=== PATIENT | female | born 1945 | race Caucasian/White ===

== ENCOUNTER 2016-09-11 18:09 | Inpatient (IN) | payer OTHER ==
[~2016-09-11] VITALS: Ht 171.4 cm; Wt 65.1 kg
[~2016-09-11 18:09] MED LIST: ALBUTEROL2.5 MG/3 M IN; ALENDRONATE SOD70 MG PO; ASPIRIN ADULT L81 M1 PO; ATROVENT0.03 %; CARDIZEM C1 PO; CENTRUM1 TAB PO; CITALOPRAM HYDR40 MG PO; COUMADIN2.5 MG PO; DIFLUCAN200 MG PO; DIPHENHYDRAMINE25 M1 PO; FLOVENT HFA110 MCG IN; FUROSEMIDE20 MG PO; IPRATROPIUM BROMIDE/; IPRATROPIUM BROMIDE/ IN; LEVAQUIN750 MG PO; LOPRESSOR25 MG PO; MEGESTROL ACETATE PO; MONTELUKAST SOD10 MG PO; MUCINEX600 MG PO; NORCO1 TA1 PO; O2; O2 IN; PERCOCET1 TA1 PO; PREDNISONE10 MG PO; PREDNISONE20 MG PO; PROAIR HFA IN; REMERON15 MG PO; TYLENOL325 MG PO; VITAMIN D-31000 UNIT PO; XANAX0.5 MG PO; XARELTO10 MG PO; [UNRECOGNIZED DRUG - OTHER] PO
[2016-09-11 18:43] VITALS: BP 103/70
--- NOTE | 2016-09-11 21:28 | DIAGNOSTIC IMAGING REPORT ---
PROCEDURE: XR CHEST 2 VIEW INDICATION: COPD EXACERBATION TECHNIQUE: PA and lateral views. COMPARISON: Compared to CTA thorax (08/03/2016) and chest x-ray (07/24/2016). FINDINGS: Pulmonary hyperexpansion and chronic obstructive pulmonary disease. There is chronic volume loss in the right upper lung with chronic elevation of the right pulmonary artery are clear. Heart and mediastinum are normal. Thorax is unchanged within normal limits. IMPRESSION: 1. Chronic obstructive pulmonary disease. 2. Otherwise negative chest. No evidence of acute process.
[2016-09-11 22:35] VITALS: BP 121/78
[2016-09-12 02:25] VITALS: BP 145/76
--- NOTE | 2016-09-12 06:06 | Progress Note ---
Subjective General Patient states that she is doing around the same. Forgot that she had been getting the breathing treatments showing some confusion. Has SOB around the same. No chest pain, no bleeding. Physical Exam Vital Signs / I&Os Vital Signs Date Time Temp Pulse Resp B/P Pulse O2 O2 Flow FiO2 Ox Delivery Rate 09/12 0309 3.0 09/12 0225 98.6 86 20 145/76 91 Nasal 3.0 Cannula 09/12 0211 2.0 09/115 98.8 103 20 121/78 99 Nasal 4.0 Cannula 09/11 1843 98.4 98 20 103/70 100 Nasal 5.0 Cannula I&O 09/12 0000 09/11 1600 09/11 0800 Intake Total 240 Output Total Balance 240 General Appearance weak appearing female Lungs coarse BS with wheezes, some rhonchi Cardiovascular Regular rate and rhythm Abdomen Soft, No tenderness Extremities No edema LAB Results Laboratory Tests 09/11 2209 Chemistry Plasma Sodium (136 - 145 mmol/L) 142 Plasma Potassium (3.5 - 5.1 mmol/L) 4.1 Plasma Chloride (98 - 107 mmol/L) 106 CO2 (Enzymatic) (21 - 32 mmol/L) 29 BUN (7 - 18 mg/dL) 23 Creatinine (0.6 - 1.3 mg/dL) 1.2 Est GFR ( Amer) (mL/min) 56.89 Est GFR (Non-Af Amer) (mL/min) 46.94 Glucose (70 - 110 mg/dL) 137 Plasma Calcium (8.5 - 10.1 mg/dL) 8.9 Total Bilirubin (0.0 - 1.0 mg/dL) 0.3 AST (15 - 37 U/L) 16 ALT (12 - 78 U/L) 16 Alkaline Phosphatase (46 - 116 U/L) 66 Total Protein (6.4 - 8.2 g/dL) 6.8 Albumin (3.3 - 5.0 g/dL) 3.1 Coagulation INR (0.8 - 1.2) 1.6 Hematology WBC (4.5 - 11.5 K/uL) 3.4 RBC (4.00 - 5.20 M/uL) 3.80 Hgb (12.0 - 16.0 gm/dL) 9.3 Hct (36.0 - 46.0 %) 29.5 MCV (80 - 100 fL) 78 MCH (26 - 34 pg) 25 RDW (11.6 - 14.8 %) 20.6 Neut % (Auto) (50 - 75 %) 68.6 Lymph % (Auto) (25 - 40 %) 21.2 [place] % (Auto) (3 - 14 %) 7.8 Eos % (Auto) (0 - 4 %) 2.1 Baso % (Auto) (0 - 2 %) 0.3 Plt Count, EDTA (150 - 400 K/uL) 180 PUBS MCHC (31 - 37 g/dL) 32 Microbiology Date/Time Procedure - Status Source Growth 09/11 1900 Influenza Screen - COMP NASALPHAR Assessment and Plan Problem List 1. COPD exacerbation Plan Will continue with breathing treatments, steroids, abx and see how she does. 2. Hypoxia Plan On O2 stable 3. Weak Plan Continues to be weak may need to have eval with PT 4. Bronchogenic cancer Plan stable
[2016-09-12] MEDS ORDERED: RANITIDINE HCL150 MG PO (06:16)
[2016-09-12] MEDS ORDERED: PRILOSEC40 MG PO (06:17)
[2016-09-12] MEDS ORDERED: SINGULAIR10 MG PO (06:18)
[2016-09-12] MEDS ORDERED: FLUTICASONE PR50 MCG (06:20)
[2016-09-12] MEDS ORDERED: VENLAFAXINE H37.5 M1 PO (06:23)
[2016-09-12] MEDS ORDERED: IPRATROPIUM BROMIDE/ IN (06:27)
[2016-09-12 07:16] VITALS: BP 113/63
[2016-09-12 10:47] VITALS: BP 105/66
[2016-09-12 14:40] VITALS: BP 104/69
[2016-09-12 18:30] VITALS: BP 109/70
[2016-09-12 21:57] VITALS: BP 128/81
[2016-09-13 02:38] VITALS: BP 133/76
--- NOTE | 2016-09-13 06:36 | Progress Note ---
Subjective General 71 yo female with lung CA hx who presented with copd exacerbation. Is nearly back to her baseline but still wheezy. Baseline isn't great around 5/ 10 per patient. No fevers, sob pos. Physical Exam Vital Signs / I&Os Vital Signs Date Time Temp Pulse Resp B/P Pulse O2 O2 Flow FiO2 Ox Delivery Rate 09/13 0238 98.8 85 18 133/76 96 Nasal 3.0 Cannula 09/12 2157 98.1 95 18 128/81 94 Nasal 3.0 Cannula 09/12 2140 Nasal 3.0 Cannula 09/12 1901 3.0 09/12 1830 98.1 100 16 109/70 95 Nasal 3.0 Cannula 09/12 1646 3.0 09/12 1440 98.2 88 16 104/69 93 Nasal 3.0 Cannula 09/12 1152 3.0 09/12 1047 98.8 90 20 105/66 98 Nasal 3.0 Cannula 09/12 0954 Nasal 3.0 Cannula 09/12 0716 98.8 88 20 113/63 94 Nasal 3.0 Cannula I&O 09/13 0000 09/12 1600 09/12 0800 Intake Total 350 480 450 Output Total 200 350 800 Balance 150 130 -350 General Appearance Alert, Cooperative HEENT glasses Lungs coarse BS with diffuse wheezes Cardiovascular Regular rate and rhythm Extremities No edema LAB Results Laboratory Tests 09/13 09/12 09/12 0531 1254 1030 Coagulation INR (0.8 - 1.2) 2.0 1.6 Cancelled Assessment and Plan Problem List 1. Bronchogenic cancer Plan stable 2. Weak Plan Continues wo be weak and wheezy 3. COPD exacerbation Plan One more day of steroids and treatment. Is improving. Will likely be ready for d /c soon tomorrow or next day
[2016-09-13 07:24] VITALS: BP 132/71
[2016-09-13 10:23] VITALS: BP 119/66
[2016-09-13 14:40] VITALS: BP 114/75
[2016-09-13 18:10] VITALS: BP 135/83
[2016-09-14] VITALS (7 sets, daily range): BP systolic 119–152; BP diastolic 55–91
--- NOTE | 2016-09-14 23:04 | Progress Note ---
Subjective General Breathing very mildly improved, but still with significant increased work of breathing. No nausea, vomitting, diarrhea, constipation. No abd pain. No chest pain. Physical Exam Vital Signs / I&Os Vital Signs Date Time Temp Pulse Resp B/P Pulse O2 O2 Flow FiO2 Ox Delivery Rate 09/14 2225 36.7 75 16 121/73 96 Nasal 2.0 Cannula 09/14 2142 2.0 09/14 1822 36.7 80 20 119/70 95 Nasal 4.0 Cannula 09/14 1820 88 20 92 Nasal 5.0 Cannula 09/14 1559 90 20 91 Nasal 4.0 Cannula 09/14 1529 4.0 09/14 1459 36.6 92 20 127/55 95 Nasal 4.0 Cannula 09/14 1029 36.9 78 22 134/73 99 Nasal 4.0 Cannula 09/14 0830 Nasal Cannula 09/14 0819 4.0 09/14 0709 36.7 89 22 151/83 91 Nasal 3.0 Cannula 09/14 0447 36.9 86 20 142/86 95 Nasal 4.0 Cannula 09/14 0126 37.1 80 18 152/91 96 Nasal 4.0 Cannula I&O 09/14 0000 09/13 1600 09/13 0800 Intake Total 1255 660 150 Output Total 1050 450 Balance 205 210 150 General Appearance Alert, Cooperative, Mild distress Lungs Course diffusely. Increased work of breathing. Cardiovascular Regular rate and rhythm, Normal S1 and S2, 2/6 systolic murmur increased at the base. Abdomen Normal bowel sounds, Soft, No tenderness Extremities No edema Assessment and Plan Problem List 1. COPD exacerbation Plan Slowly improving. Will consider discharge to SNF or home tomorrow if improved. 2. Hypoxia Plan mildly improved. 3. Lung cancer Plan Stable.
[2016-09-15 02:22] VITALS: BP 135/73
[2016-09-15 06:53] VITALS: BP 140/78
[2016-09-15 10:52] VITALS: BP 117/55
[2016-09-15 14:28] VITALS: BP 106/64
[2016-09-15 19:13] VITALS: BP 122/58
[2016-09-15 22:59] VITALS: BP 131/67
[2016-09-15] MEDS ORDERED: PREDNISONE20 MG PO (23:58)
--- NOTE | 2016-09-15 23:59 | Provider's Discharge Care Plan ---
Problem, Goal, Plan Problem List 1. COPD exacerbation Goals: Improved health/wellness Instructions: Follow up as directed, Take meds as directed 2. DVT (deep venous thrombosis) Goals: Improved health/wellness Instructions: Follow up as directed, Take meds as directed
--- NOTE | 2016-09-16 00:04 | Progress Note ---
Subjective General Breathing mildly improved. No nausea, vomitting, diarrhea, constipation. No abdominal pain. No chest pain. Physical Exam Vital Signs / I&Os Vital Signs Date Time Temp Pulse Resp B/P Pulse O2 O2 Flow FiO2 Ox Delivery Rate 09/15 2259 36.7 70 22 131/67 100 Nasal 4.0 Cannula 09/15 1913 36.9 82 22 122/58 100 Nasal 4.0 Cannula 09/15 1515 4.0 09/15 1505 89 Nasal 4.0 Cannula 09/15 1428 37.1 85 22 106/64 96 Nasal 4.0 Cannula 09/15 1116 4.0 09/15 1052 36.7 99 22 117/55 93 Nasal 4.0 Cannula 09/15 0842 4.0 09/15 0657 5.0 09/15 0653 36.9 89 22 140/78 92 Nasal 5.0 Cannula 09/15 0222 36.9 73 16 135/73 98 Nasal 2.0 Cannula 09/15 0100 2.0 I&O 09/16 0000 09/15 1600 09/15 0800 Intake Total 560 50 Output Total 600 600 Balance -40 -550 General Appearance Alert, Cooperative, Mild distress Lungs Course diffusely with diffuse moderate to severe wheezing with OK air movement. Mildy improved from yesterday. Cardiovascular Regular rate and rhythm, Normal S1 and S2, No murmurs, gallops, rubs Abdomen Normal bowel sounds, Soft, No tenderness Extremities No edema Assessment and Plan Problem List 1. COPD exacerbation Plan Improving on duonebs, steroids, and rocephin. If improved tomorrow, will consider dishcarge to home. 2. Hypoxia Plan Stable. 3. Lung cancer Plan Stable. 4. DVT (deep venous thrombosis) Plan Supratherapeutic on coumadin. Held today. Recheck in am. 5. Paroxysmal atrial fibrillation Plan Rate controlled on medications.
[2016-09-16 02:50] VITALS: BP 139/80
[2016-09-16 07:08] VITALS: BP 147/78
[2016-09-16] MEDS ORDERED: PREDNISONE20 MG PO (07:47)
[2016-09-16 10:52] VITALS: BP 120/64
[2016-09-16 14:30] VITALS: BP 95/61
[2016-09-16 18:38] VITALS: BP 127/66
[2016-09-16 23:21] VITALS: BP 123/78
[2016-09-17 02:57] VITALS: BP 127/82
[2016-09-17 06:27] VITALS: BP 156/94
[2016-09-17 10:39] VITALS: BP 138/74
[2016-09-17 14:41] VITALS: BP 113/65
[2016-09-17 19:13] VITALS: BP 120/70
[2016-09-17 23:14] VITALS: BP 130/67
[2016-09-18 03:33] VITALS: BP 141/81
[2016-09-18 06:25] VITALS: BP 142/69
[2016-09-18 10:48] VITALS: BP 117/59
--- NOTE | 2016-09-22 09:41 | DISCHARGE SUMMARY ---
ADMIT DATE: 09/11/2016 DISCHARGE DATE: 09/18/2016 ADMISSION DIAGNOSES: 1. Chronic obstructive pulmonary disease exacerbation 2. Hypoxia 3. Lung cancer 4. Recent deep venous thrombosis 5. Paroxysmal atrial fibrillation DISCHARGE DIAGNOSES: 1. Chronic obstructive pulmonary disease exacerbation 2. Hypoxia 3. Lung cancer 4. Recent deep venous thrombosis 5. Paroxysmal atrial fibrillation BRIEF HISTORY: This is a 71-year-old female with a history of lung cancer and COPD, presenting to my clinic with complaints of increasing shortness of breath and cough. The patient had mild symptoms. The day before presentation; however, was significantly worse when she presented to the clinic. She is also complaining of increased sputum production; however, denies any fevers, but does have chills. HOSPITAL COURSE: The patient was admitted to the hospital and treated for her COPD exacerbation with IV antibiotics, steroids, and DuoNebs. She very slowly improved and waxed and waned towards the end of her hospitalization. I had recommended that the patient go to rehabilitation as she was fairly unstable on her feet; however, her insurance declined that. She did eventually discharge to [facility] for a couple of days for increased assistance as she is recovering from this illness. PHYSICAL EXAMINATION: VITAL SIGNS: At the time of discharge, vital signs were stable. GENERAL: This is in elderly patient, sitting in a chair, in no apparent distress. HEENT: Head is atraumatic, normocephalic. Trachea is midline. There is no JVD. HEART: S1, S2, irregularly irregular rhythm. No S3, S4, gallops, or rubs. There is a 2/6 systolic murmur increased at the base. LUNGS: Mildly worse again today, but overall improved from admission with coarse lung sounds diffusely. ABDOMEN: Soft, nontender, nondistended without hepatosplenomegaly or masses. Bowel sounds are active. There is no peripheral edema. DISCHARGE INSTRUCTIONS/MEDICATIONS: The patient was discharged to [facility] for further recovery. Diet: Cardiac diet. Activity: Up with assist. Consult home health care for physical therapy. Medications: Prednisone 40 mg p.o. daily x3 days, then 20 mg p.o. daily x3 days, then 10 mg p.o. daily x4 days. Alendronate 70 mg p.o. weekly. Mirtazapine 30 mg p.o. at bedtime. Tylenol 650 mg p.o. q.4 hours p.r.n. severe pain. Vitamin D 2000 international units p.o. daily. Multivitamin 1 tab p.o. daily. Fluticasone 110 mcg 1 puff inhaled b.i.d. Diphenhydramine 25 mg p.o. daily p.r.n. allergies and insomnia. Albuterol inhaler HFA 2 puffs inhaled q.4 hours p.r.n. wheezing. Coumadin 6 mg Wednesday, Wednesday, Wednesday, Wednesday, Wednesday, and 5 mg on Tuesdays and . Cardizem 180 mg p.o. daily. Metoprolol tartrate 25 mg p.o. b.i.d. Furosemide 20 mg p.o. daily. Mucinex 600 mg p.o. b.i.d. Montelukast 10 mg p.o. at bedtime. Xanax 0.5 mg p.o. t.i.d. p.r.n. anxiety. Percocet 5/325 mg p.o. b.i.d. p.r.n. severe pain. Ranitidine 150 mg p.o. b.i.d. Prilosec 40 mg p.o. b.i.d. Fluticasone 2 sprays each nostril inhaled daily. Venlafaxine 37.5 mg p.o. daily. DuoNeb 1 neb inhaled q.i.d. Follow up, the patient was instructed to have a PT/INR on Wednesday of this week.
== END 2016-09-18 15:00 | disposition home or self-care (01) | DRG 191 ==
LOC: ACUTE2 SRH 18:09
PROVIDERS: ADMIT Family Medicine
DX: J44.1 Chronic obstructive pulmonary disease with (acute) exacerbation (principal); R09.02 Hypoxemia; C34.11 Malignant neoplasm of upper lobe, right bronchus or lung; I50.32 Chronic diastolic (congestive) heart failure; I48.0 Paroxysmal atrial fibrillation; Z79.01 Long term (current) use of anticoagulants
CPT/HCPCS: 90074; 90100; 91400; 94060; 95059

== ENCOUNTER 2016-11-02 16:38 | Emergency (ER) | payer OTHER ==
[~2016-11-02 16:38] MED LIST changes: +FLUTICASONE PR50 MCG; +PRILOSEC40 MG PO; +RANITIDINE HCL150 MG PO; +SINGULAIR10 MG PO; +VENLAFAXINE H37.5 M1 PO
--- NOTE | 2016-11-02 18:36 | DIAGNOSTIC IMAGING REPORT ---
PROCEDURE: XR CHEST 1 VIEW INDICATION: SHORTNESS OF BREATH TECHNIQUE: Single view chest. 1711 hours COMPARISON: 09/11/2016 FINDINGS: Stable heart size. Prominent left pulmonary artery. Superior retraction of the right hilum. Fibrosis and volume loss in the right upper lung with patchy opacity and subpleural thickening consistent with post-treatment changes. Hyperinflated, hyperlucent left upper lobe and reticular pattern in the lower lobes bilaterally. Strandy density in the left lung base with trace left costophrenic angle blunting. No pneumothorax. Intact osseous structures with osteoarthritic changes of the right glenohumeral joint. IMPRESSION: 1. Strand-like left base density with trace CPA blunting. This may be atelectatic change, bronchiectasis, or early infiltrate. 2. Fibrotic changes in the right upper lung, post treatment. 3. Findings superimposed on COPD.
--- NOTE | 2016-11-02 19:05 | ED CLINICAL REPORT ---
Clinical Report - Physicians/Mid Levels [facility] [address] [place] [address] 11/02/2016 16:38 [id number] Time Seen: 16:41. Arrived- By private vehicle. Historian- patient and patient's physician (Dr Mansoor Raymond, Oncologist). HISTORY OF PRESENT ILLNESS Chief Complaint: anemia. This started today and is still present. (The patient has a history of stage III lung cancer that was previously treated with radiation and chemotherapy. She went in today to see her oncologist and he was encouraged that her cancer seems to be in remission. However he is concerned that she has been very anemic and that she has significant dyspnea on exertion and she was reportedly hypoxic in his office. He is concerned that she may need transfusion and therefore he sent her here.). REVIEW OF SYSTEMS No chills, fever, sweats, calf pain or pedal edema. No palpitations, abdominal pain, black stools, bloody stools or constipation. No diarrhea, nausea, vomiting or urinary problems. The patient has had difficulty breathing. It has been similar to previous symptoms. The patient has also had dyspnea on exertion. All systems otherwise negative, except as recorded above. PAST HISTORY Problems: Neoplasm. Esophageal Spasm. Unerweight. Edema. Neck Pain. Shoulder Injury. Cataracts. Allergic Rhinitis. Dyslipidemia. Arthritis. Osteopenia. CVA - Cerebrovascular Accident. Acutte Diastolic Failure. Anxiety Reaction. Fatigue. Dyspnea. Hemoptysis. Diarrhea. Pneumonia. Pulmonary Edema. Hypertension. DVT - Deep Venous Thrombosis. Lung Cancer. COPD - Chronic Obstructive Pulmonary Disease. Additional Surgeries: Appendectomy. Ganglian cyst on knuckle. Herniated disc. R kidney removed. Tonsillectomy. Medications: Alendronate Sodium Oral. Megace Oral Oral. PriLOSEC Oral. Ranitidine HCl Oral. Singulair Oral. Warfarin Sodium Oral. Furosemide Oral. Diltiazem HCl ER Coated Beads Oral. Fluticasone Propionate HFA Inhalation. Benadryl Oral. ProAir HFA Inhalation. Albuterol Sulfate Inhalation. Flovent HFA Inhalation. Oxycodone-Acetaminophen ER Oral. ALPRAZolam Oral. Ipratropium-Albuterol Inhalation. Multivitamins Oral. Vitamin D Oral. Home Oxygen @ 4LPM/NC. Allergies: Sulfa Antibiotics. SOCIAL HISTORY Former smoker, end date 2012. No alcohol use or drug use. FAMILY HISTORY No significant family medical history. ADDITIONAL NOTES The nursing notes have been reviewed. PHYSICAL EXAM Vital Signs: 11/02/2016 16:47 BP: 125/81. HR: 112. RR: 20. O2 saturation: 100%. Temp: 98.6 F. Have been reviewed. Appearance: Alert. Eyes: Pupils equal, round and reactive to light. ENT: Pharynx normal. Neck: Normal inspection. Neck supple. CVS: Normal heart rate and rhythm. Heart sounds normal. Respiratory: No respiratory distress. Decreased air movement. No rales, rhonchi or wheezes. Abdomen: No visible injury. Soft and nontender. Bowel sounds normal. No organomegaly. No mass. Back: Normal inspection. Skin: Skin warm and dry. Normal skin color. No rash. Normal skin turgor. Extremities: Extremities exhibit normal ROM. No calf tenderness. No lower extremity edema. LABS, X-RAYS, AND EKG EKG: Rate: 84. Non-specific ST segment / T wave abnormalities. Prior EKG unavailable. The study has been independently viewed by me. Artifact present. Chest X-ray: (Pulmonary hyperexpansion and chronic obstructive pulmonary disease. There is chronic volume loss in the right upper lung with chronic elevation of the right pulmonary artery are clear. Heart and mediastinum are normal. Thorax is unchanged within normal limits.). The X-rays were independently viewed by me. A comparison with prior films reveals that the findings are unchanged (September 11, 2016). Laboratory Tests: CBC w Diff: (DAVINA: 11/02/2016 16:52) ( MsgRcvd 11/02/2016 18:27) Final results Test Result Flag Units (Reference) WHITE BLOOD COUNT 7.3 K/uL (4.5-11.5) RED BLOOD COUNT 4.37 M/uL (4.00-5.20) HEMOGLOBIN 10.8 L gm/dL (12.0-16.0) HEMATOCRIT 34.7 L % (36.0-46.0) MEAN CELL VOLUME 79 L fL (80-100) MEAN CORPUSCULAR HGB 25 L pg (26-34) MEAN CORPUSCULAR HGB CONC 31 g/dL (31-37) RED CELL DISTRIBUTION WIDTH 21.0 H % (11.6-14.8) PLATELET COUNT 238 K/uL (150-400) NEUTROPHIL % 74.5 % (50-75) LYMPH % 17.3 L % (25-40) MONO % 6.6 % (3-14) EOSINOPHIL % 1.2 % (0-4) BASOPHIL % 0.4 % (0-2) RBC MORPHOLOGY ANISOCYTOSIS 4+~~POLYCHROMASIA 2+~~MICROCYTOSIS 1+ PT with INR: (DAVINA: 11/02/2016 16:52) ( [facility] 11/02/2016 17:30) Final results Test Result Flag Units (Reference) INR 1.7 H (0.8-1.2) Low Intensity Therapy: INR 1.5-2.0 PT range 18.5-23.1Mod.Intensity Therapy: INR 2.0-3.0 PT range 23.1-31.5High Intensity Therapy: INR 2.5-3.5 PT range 27.4-35.5High Intensity Therapy 2: INR 3.0-4.0 PT range 31.5-39.3 APTT 37 H SECONDS (24-34) CPK: (DAVINA: 11/02/2016 16:52) ( [facility] 11/02/2016 17:43) Final results Test Result Flag Units (Reference) CPK 51 U/L (24-260) TROPONIN I <0.05 L ng/mL (0.00-1.5) TROPONIN REFERENCE RANGE:<0.1 NEGATIVE0.1-1.5 INDETERMINANT>1.5 POSITIVE CMP: (DAVINA: 11/02/2016 16:52) ( [facility] 11/02/2016 17:42) Final results Test Result Flag Units (Reference) GLUCOSE 97 mg/dL (70-110) BUN 21 H mg/dL (7-18) CREATININE 1.3 mg/dL (0.6-1.3) Estimated GFR 42.79 mL/min Estimated GFR- 51.87 mL/min Note: Persistent reduction over 3 months in eGFR<60 mL/min/1.73 m2 defines CKD. Patients with eGFR values>=60 mL/min/1.73 m2 may also have CKD if evidence ofpersistent proteinuria. Additional information may be foundat [email or web address].org. SODIUM 141 mmol/L (136-145) POTASSIUM 3.7 mmol/L (3.5-5.1) CHLORIDE 99 mmol/L (98-107) CARBON DIOXIDE 35 H mmol/L (21-32) CALCIUM 9.5 mg/dL (8.5-10.1) TOTAL PROTEIN 7.7 g/dL (6.4-8.2) ALBUMIN 3.4 g/dL (3.3-5.0) BILIRUBIN, TOTAL 0.3 mg/dL (0.0-1.0) ALKALINE PHOSPHATASE 78 U/L (46-116) AST (SGOT) 15 U/L (15-37) ALT (SGPT) 15 U/L (12-78) LIPASE 169 U/L (73-393) AMYLASE 61 U/L (25-115) Type & Screen: (DAVINA: 11/02/2016 16:52) ( MsgRcvd 11/02/2016 18:15) Final results Test Result Flag Units (Reference) PATIENT BLOOD TYPE B Positive ANTIBODY SCREEN NEGATIVE . PROGRESS AND PROCEDURES Discussed case with patient's primary care provider, (Thony). Reviewed test results and need for additional work-up. Agreed upon treatment plan and need for patient follow-up. Health care provider will see patient in office. Consult obtained from oncology. Dr. Raymond. Case discussed. Will see patient in the office. Patient/family counseled. Old medical records ordered. Disposition: Discharged. Condition: stable. CLINICAL IMPRESSION Stable COPD. Chronic anemia. Oral anticoagulation therapy with oracle security consultant use and subtherapeutic PT. INSTRUCTIONS (Contact Dr. Bhandari's office to confirm that she plans to do a home visit tomorrow as discussed). Warnings: Further evaluation is necessary. GENERAL WARNINGS: Return or contact your physician immediately if your condition worsens or changes unexpectedly, if not improving as expected, or if other problems arise. Your Current Medications: CONTINUE TAKING THE FOLLOWING MEDICATIONS: Albuterol Sulfate Inhalation. Alendronate Sodium Oral. ALPRAZolam Oral. Benadryl Oral. Diltiazem HCl ER Coated Beads Oral. Flovent HFA Inhalation. Fluticasone Propionate HFA Inhalation. Furosemide Oral. Home Oxygen @ 4LPM/NC*. Ipratropium-Albuterol Inhalation. Megace Oral Oral. Multivitamins Oral. Oxycodone-Acetaminophen ER Oral. PriLOSEC Oral. ProAir HFA Inhalation. Ranitidine HCl Oral. Singulair Oral. Vitamin D Oral. Warfarin Sodium Oral. Understanding of the discharge instructions verbalized by patient. Follow-up with: Eveline Bhandari MD, [facility], , [facility], [address] [place] [address] Follow up tomorrow. (Electronically signed by Flex Lema MD 11/03/2016 23:38)
--- NOTE | 2016-11-02 19:05 | ED NURSING NOTES ---
Clinical Report - Nurses [facility] [address] [place] [address] 11/02/2016 16:38 Patient: GERMANIA MARTINEZ TRIAGE Triage time 16:45 Nov 02 2016. Acuity: LEVEL 3. Chief Complaint: SHORTNESS OF BREATH. Alert. [place] COMA SCORE: [place] Coma Scale: 15- eyes open spontaneously (4); best verbal response- oriented x 4 (5); best motor response- obeys commands (6). --17:05 Stanton Painter R.N. 16:47 11/02/16. BP: 125/81. HR: 112. RR: 20. O2 saturation: 100% on nasal cannula at 4 liters/minute. Temp: 98.6 F. --17:05 Stanton Painter R.N. Acuity: LEVEL 3. --17:20 Stanton Painter R.N. 16:47 11/02/16. Pain level now: 7/10. Additional comments: joint aches/pains. --21:06 Stanton Painter R.N. Weight: 60 kg measured. Height/Length: 68 inches Per Patient. BMI: 20.1. --16:48 Stanton Painter R.N. Medications Home Oxygen @ 4LPM/NC. --17:26 Stanton Painter R.N. ALPRAZolam Oral. Ipratropium-Albuterol Inhalation. Multivitamins Oral. Vitamin D Oral. --17:26 Stanton Painter R.N. Albuterol Sulfate Inhalation. Flovent HFA Inhalation. Oxycodone-Acetaminophen ER Oral. --17:28 Stanton Painter R.N. ProAir HFA Inhalation. --17:28 Stanton Painter R.N. Benadryl Oral. --17:29 Stanton Painter R.N. Diltiazem HCl ER Coated Beads Oral. Fluticasone Propionate HFA Inhalation. --17:31 Stanton Painter R.N. Furosemide Oral. --17:31 Stanton Painter R.N. Megace Oral Oral. PriLOSEC Oral. Ranitidine HCl Oral. Singulair Oral. Warfarin Sodium Oral. --17:32 Stanton Painter R.N. Alendronate Sodium Oral. --17:33 Stanton Painter R.N. Allergies Sulfa Antibiotics. --17:01 Stanton Painter R.N. History Arrived by private vehicle. Historian: patient. Accompanied by friend. ( Sent by Oncologist for a very low O2Sat (in the 60's).). Treatment COUTURIERE: None. --17:05 Stanton Painter R.N. The patient has had a cough. PAST MEDICAL HX: Immunizations: status is unknown. The patient is post-menopausal. SOCIAL HX: Former smoker, end date 2012. No alcohol use or drug use. No infectious disease exposure. ABUSE ASSESSMENT: No report of abuse. FALL RISK ASSESSMENT: Fall risk assessment completed. No fall risk identified. NUTRITIONAL RISK ASSESSMENT: The nutritional risk assessment revealed no deficiencies. FUNCTIONAL ASSESSMENT: Functional assessment: no impairments noted. LEARNING NEEDS ASSESSMENT: The learning needs assessment revealed no barriers. SKIN INTEGRITY ASSESSMENT: Skin integrity risk assessment completed. No skin integrity risk identified. --17:20 Stanton Painter R.N. PROBLEMS: Pulmonary Edema. Hypertension. DVT - Deep Venous Thrombosis. Lung Cancer. COPD - Chronic Obstructive Pulmonary Disease. --16:56 Stanton Painter R.N. Pneumonia. --17:00 Stanton Painter R.N. Neoplasm. Esophageal Spasm. Unerweight. Edema. Neck Pain. Shoulder Injury. Cataracts. Allergic Rhinitis. Dyslipidemia. Arthritis. Osteopenia. CVA - Cerebrovascular Accident. Acutte Diastolic Failure. Anxiety Reaction. Fatigue. Dyspnea. Hemoptysis. Diarrhea. --17:41 Stanton Painter R.N. The following entry was modified by Stanton Painter R.N., 17:00 <<STRICKEN ENTRY-- Pneumonia. --17:44 Stanton Painter R.N. --END STRIKE>>. ADDITIONAL SURGERIES: Appendectomy. Ganglian cyst on knuckle. Herniated disc. R kidney removed. Tonsillectomy. --16:56 Stanton Painter R.N. Interventions ID band on patient. To room. --17:05 Stanton Painter R.N. ID band on patient. To treatment room. --17:20 Stanton Painter R.N. PHYSICAL ASSESSMENT Ambulatory to room. GENERAL / NEURO / PSYCH: Alert. Oriented X 4. HEENT: Mucous membranes are pink. RESPIRATORY: Moderate respiratory distress. The patient can speak in full sentences. CVS: Normal sinus rhythm noted. GI / : Abdomen soft and nontender. SKIN: Skin is warm and dry. Normal skin turgor. --17:21 Stanton Painter R.N. NURSING PROGRESS NOTES 16:47 11/02/2016 Site #1 started via IV in the left with an 18g angiocath, with aseptic technique and good blood return; one attempt. Blood drawn: rainbow set. Labeled in the presence of the patient and sent to the lab. Saline lock flushed with 10 mL saline (start by Сергей Edwarsd RN). --16:53 Stanton Painter R.N. EKG time: (17:05). EKG was performed by a tech and shown to the ED physician. --17:13 Jazzy Beard Oxygen administered by nasal cannula at 4 liters. Patient gowned. Reassurance given to the patient. Patient identifiers checked. Call light placed in reach. Side rails up x 2. Bed placed in lowest position. Brakes of bed on. Patient ready for evaluation- chart flagged and ED physician notified. --17:21 Stanton Painter R.N. 18:09 11/02/2016 Started bag #1 1000 mL IV Fluids IV NS (Saline); at 500 mL/hr over 30 minute(s) via site #1 via IV pump. Allergies verified and confirmed 5 rights. IV patency established. IV site checked: no pain, redness, or swelling. IV flushed thoroughly pre- and post-medication administration. --18:09 Bonnie Miles R.N. 18:08 11/02/16. BP: 108/94. HR: 85. RR: 18. O2 saturation: 95% on nasal cannula at 4 liters/minute. Pain level now: 7/10. Additional comments: LY. --18:10 Stanton Painter R.N. 19:30 11/02/2016 Site #1 removed upon discharge. Catheter intact. Manual pressure, bandaid and bandage applied. --21:04 Stanton Painter R.N. 19:30 11/02/2016 IV Fluids IV NS Discontinued: bag #1 STOPPED upon discharge. Total amount infused: 400 mL. IV patency established. IV site checked: no pain, redness, or swelling. IV flushed thoroughly. --21:04 Stanton Painter R.N. DISPOSITION / DISCHARGE 19:30 11/02/16. BP: 106/61. HR: 87 (regular). RR: 18. O2 saturation: 97% on nasal cannula at 4 liters/minute. Temp: 98.6 F. Pain level now: 11/13. Additional comments: aching joints pain. --20:56 Stanton Painter R.N. Departure time: 1934. --20:56 Stanton Painter R.N. 19:35. Condition at departure: improved. No learning barriers present. Discharge instructions provided and reviewed with the patient. Reviewed medication(s) (continue your usual medications). Reviewed referral to family practice for followup (braden). Patient verbalized understanding. Written instructions provided in Greek. The patient was discharged by the physician. She was discharged home and accompanied by financial developer. She left the Emergency Department ambulatory and via private vehicle. Tube Station Attendant driving. --20:58 Stanton Painter R.N. Locked/Released at 11/02/2016 21:06 by Stanton Painter R.N.
--- NOTE | 2016-11-02 19:05 | ED ORDER SUMMARY ---
..... Patient: GERMANIA MARTINEZ OrderSheet [facility] VisitID: [id number] [address] [place] [address] 71y, F Registration Date/Time: 11/02/2016 ORDER SHEET Weight: 60 kg (measured) Allergies: Sulfa Antibiotics GENERAL ORDERS: CBC w Diff Urgent (16:42 11/02/2016 Christopher LYNCH) (16:53 Gio R.N.) CMP Urgent (16:42 11/02/2016 Christopher LYNCH) (16:53 Gio R.N.) PT with INR Urgent (16:42 11/02/2016 Christopher LYNCH) (16:53 Gio Restrepo.N.) PTT Urgent (16:42 11/02/2016 Christopher LYNCH) (16:53 Gio R.N.) Amylase Urgent (16:42 11/02/2016 Christopher LYNCH) (16:53 Gio R.N.) Lipase Urgent (16:42 11/02/2016 Christopher LYNCH) (16:53 Gio R.N.) Type & Screen Urgent (16:42 11/02/2016 Christopher LYNCH) (16:53 Gio R.N.) Chest 1V Urgent (16:42 11/02/2016 Christopher LYNCH) (Ack 17:04 AMcQuoid ER Tech1) (17:05 AMcQuoid ER Tech1) Oxygen (2 L/min) (NC) (16:43 11/02/2016 Christopher LYNCH) (17:06 AMcQuoid ER Tech1) CPK Urgent (17:19 11/02/2016 Christopher LYNCH) (17:28 AMcQuoid ER Tech1) Troponin-I Urgent (17:19 11/02/2016 Christopher LYNCH) (17:28 AMcQuoid ER TechIvone) EKG - ER Stat (17:19 11/02/2016 Christopher LYNCH) (17:33 RKaruga) MEDICATION ORDERS: IV FLUIDS: IV Saline Lock (16:43 11/02/2016 Christopher LYNCH) (16:53 Gio R.N.) IV NS : initial bolus 500 mL (1000 mL/hr), then 125 mL/hr for 4h (NOW); Urgent (17:53 11/02/2016 Christopher LYNCH) (18:09 Qian Cristobal) ORDER SHEET NOTES: [Electronically signed by Stanton Painter R.N. (21:06 11/02/2016)] [Electronically signed by Flex Lema MD (23:38 11/03/2016)] [Electronically locked/signed by Stanton Painter R.N. (:06 11/02/2016)]
--- NOTE | 2016-11-02 19:05 | ED CLINICAL REPORT ---
Clinical Report - Physicians/Mid Levels [facility] [address] [place] [address] 11/02/2016 16:38 [id number] Time Seen: 16:41. Arrived- By private vehicle. Historian- patient and patient's physician (Dr Mansoor Raymond, Oncologist). HISTORY OF PRESENT ILLNESS Chief Complaint: anemia. This started today and is still present. (The patient has a history of stage III lung cancer that was previously treated with radiation and chemotherapy. She went in today to see her oncologist and he was encouraged that her cancer seems to be in remission. However he is concerned that she has been very anemic and that she has significant dyspnea on exertion and she was reportedly hypoxic in his office. He is concerned that she may need transfusion and therefore he sent her here.). REVIEW OF SYSTEMS No chills, fever, sweats, calf pain or pedal edema. No palpitations, abdominal pain, black stools, bloody stools or constipation. No diarrhea, nausea, vomiting or urinary problems. The patient has had difficulty breathing. It has been similar to previous symptoms. The patient has also had dyspnea on exertion. All systems otherwise negative, except as recorded above. PAST HISTORY Problems: Neoplasm. Esophageal Spasm. Unerweight. Edema. Neck Pain. Shoulder Injury. Cataracts. Allergic Rhinitis. Dyslipidemia. Arthritis. Osteopenia. CVA - Cerebrovascular Accident. Acutte Diastolic Failure. Anxiety Reaction. Fatigue. Dyspnea. Hemoptysis. Diarrhea. Pneumonia. Pulmonary Edema. Hypertension. DVT - Deep Venous Thrombosis. Lung Cancer. COPD - Chronic Obstructive Pulmonary Disease. Additional Surgeries: Appendectomy. Ganglian cyst on knuckle. Herniated disc. R kidney removed. Tonsillectomy. Medications: Alendronate Sodium Oral. Megace Oral Oral. PriLOSEC Oral. Ranitidine HCl Oral. Singulair Oral. Warfarin Sodium Oral. Furosemide Oral. Diltiazem HCl ER Coated Beads Oral. Fluticasone Propionate HFA Inhalation. Benadryl Oral. ProAir HFA Inhalation. Albuterol Sulfate Inhalation. Flovent HFA Inhalation. Oxycodone-Acetaminophen ER Oral. ALPRAZolam Oral. Ipratropium-Albuterol Inhalation. Multivitamins Oral. Vitamin D Oral. Home Oxygen @ 4LPM/NC. Allergies: Sulfa Antibiotics. SOCIAL HISTORY Former smoker, end date 2012. No alcohol use or drug use. FAMILY HISTORY No significant family medical history. ADDITIONAL NOTES The nursing notes have been reviewed. PHYSICAL EXAM Vital Signs: 11/02/2016 16:47 BP: 125/81. HR: 112. RR: 20. O2 saturation: 100%. Temp: 98.6 F. Have been reviewed. Appearance: Alert. Eyes: Pupils equal, round and reactive to light. ENT: Pharynx normal. Neck: Normal inspection. Neck supple. CVS: Normal heart rate and rhythm. Heart sounds normal. Respiratory: No respiratory distress. Decreased air movement. No rales, rhonchi or wheezes. Abdomen: No visible injury. Soft and nontender. Bowel sounds normal. No organomegaly. No mass. Back: Normal inspection. Skin: Skin warm and dry. Normal skin color. No rash. Normal skin turgor. Extremities: Extremities exhibit normal ROM. No calf tenderness. No lower extremity edema. LABS, X-RAYS, AND EKG EKG: Rate: 84. Non-specific ST segment / T wave abnormalities. Prior EKG unavailable. The study has been independently viewed by me. Artifact present. Chest X-ray: (Pulmonary hyperexpansion and chronic obstructive pulmonary disease. There is chronic volume loss in the right upper lung with chronic elevation of the right pulmonary artery are clear. Heart and mediastinum are normal. Thorax is unchanged within normal limits.). The X-rays were independently viewed by me. A comparison with prior films reveals that the findings are unchanged (September 11, 2016). Laboratory Tests: CBC w Diff: (DAVINA: 11/02/2016 16:52) ( MsgRcvd 11/02/2016 18:27) Final results Test Result Flag Units (Reference) WHITE BLOOD COUNT 7.3 K/uL (4.5-11.5) RED BLOOD COUNT 4.37 M/uL (4.00-5.20) HEMOGLOBIN 10.8 L gm/dL (12.0-16.0) HEMATOCRIT 34.7 L % (36.0-46.0) MEAN CELL VOLUME 79 L fL (80-100) MEAN CORPUSCULAR HGB 25 L pg (26-34) MEAN CORPUSCULAR HGB CONC 31 g/dL (31-37) RED CELL DISTRIBUTION WIDTH 21.0 H % (11.6-14.8) PLATELET COUNT 238 K/uL (150-400) NEUTROPHIL % 74.5 % (50-75) LYMPH % 17.3 L % (25-40) MONO % 6.6 % (3-14) EOSINOPHIL % 1.2 % (0-4) BASOPHIL % 0.4 % (0-2) RBC MORPHOLOGY ANISOCYTOSIS 4+~~POLYCHROMASIA 2+~~MICROCYTOSIS 1+ PT with INR: (DAVINA: 11/02/2016 16:52) ( [facility] 11/02/2016 17:30) Final results Test Result Flag Units (Reference) INR 1.7 H (0.8-1.2) Low Intensity Therapy: INR 1.5-2.0 PT range 18.5-23.1Mod.Intensity Therapy: INR 2.0-3.0 PT range 23.1-31.5High Intensity Therapy: INR 2.5-3.5 PT range 27.4-35.5High Intensity Therapy 2: INR 3.0-4.0 PT range 31.5-39.3 APTT 37 H SECONDS (24-34) CPK: (DAVINA: 11/02/2016 16:52) ( [facility] 11/02/2016 17:43) Final results Test Result Flag Units (Reference) CPK 51 U/L (24-260) TROPONIN I <0.05 L ng/mL (0.00-1.5) TROPONIN REFERENCE RANGE:<0.1 NEGATIVE0.1-1.5 INDETERMINANT>1.5 POSITIVE CMP: (DAVINA: 11/02/2016 16:52) ( [facility] 11/02/2016 17:42) Final results Test Result Flag Units (Reference) GLUCOSE 97 mg/dL (70-110) BUN 21 H mg/dL (7-18) CREATININE 1.3 mg/dL (0.6-1.3) Estimated GFR 42.79 mL/min Estimated GFR- 51.87 mL/min Note: Persistent reduction over 3 months in eGFR<60 mL/min/1.73 m2 defines CKD. Patients with eGFR values>=60 mL/min/1.73 m2 may also have CKD if evidence ofpersistent proteinuria. Additional information may be foundat www.kidney.org. SODIUM 141 mmol/L (136-145) POTASSIUM 3.7 mmol/L (3.5-5.1) CHLORIDE 99 mmol/L (98-107) CARBON DIOXIDE 35 H mmol/L (21-32) CALCIUM 9.5 mg/dL (8.5-10.1) TOTAL PROTEIN 7.7 g/dL (6.4-8.2) ALBUMIN 3.4 g/dL (3.3-5.0) BILIRUBIN, TOTAL 0.3 mg/dL (0.0-1.0) ALKALINE PHOSPHATASE 78 U/L (46-116) AST (SGOT) 15 U/L (15-37) ALT (SGPT) 15 U/L (12-78) LIPASE 169 U/L (73-393) AMYLASE 61 U/L (25-115) Type & Screen: (DAVINA: 11/02/2016 16:52) ( MsgRcvd 11/02/2016 18:15) Final results Test Result Flag Units (Reference) PATIENT BLOOD TYPE B Positive ANTIBODY SCREEN NEGATIVE . PROGRESS AND PROCEDURES Discussed case with patient's primary care provider, (Thony). Reviewed test results and need for additional work-up. Agreed upon treatment plan and need for patient follow-up. Health care provider will see patient in office. Consult obtained from oncology. Dr. Raymond. Case discussed. Will see patient in the office. Patient/family counseled. Old medical records ordered. Disposition: Discharged. Condition: stable. CLINICAL IMPRESSION Stable COPD. Chronic anemia. Oral anticoagulation therapy with long term care social worker use and subtherapeutic PT. INSTRUCTIONS (Contact Dr. Bhandari's office to confirm that she plans to do a home visit tomorrow as discussed). Warnings: Further evaluation is necessary. GENERAL WARNINGS: Return or contact your physician immediately if your condition worsens or changes unexpectedly, if not improving as expected, or if other problems arise. Your Current Medications: CONTINUE TAKING THE FOLLOWING MEDICATIONS: Albuterol Sulfate Inhalation. Alendronate Sodium Oral. ALPRAZolam Oral. Benadryl Oral. Diltiazem HCl ER Coated Beads Oral. Flovent HFA Inhalation. Fluticasone Propionate HFA Inhalation. Furosemide Oral. Home Oxygen @ 4LPM/NC*. Ipratropium-Albuterol Inhalation. Megace Oral Oral. Multivitamins Oral. Oxycodone-Acetaminophen ER Oral. PriLOSEC Oral. ProAir HFA Inhalation. Ranitidine HCl Oral. Singulair Oral. Vitamin D Oral. Warfarin Sodium Oral. Understanding of the discharge instructions verbalized by patient. Follow-up with: Eveline Bhandari MD, [facility], , [facility], [address] [place] [address] Follow up tomorrow. (Electronically signed by Flex Lema MD 11/03/2016 23:38)
--- NOTE | 2016-11-02 19:05 | ED ORDER SUMMARY ---
..... Patient: GERMANIA MARTINEZ OrderSheet [facility] VisitID: [id number] [address] [place] [address] 71y, F Registration Date/Time: 11/02/2016 ORDER SHEET Weight: 60 kg (measured) Allergies: Sulfa Antibiotics GENERAL ORDERS: CBC w Diff Urgent (16:42 11/02/2016 Christopher LYNCH) (16:53 Gio R.N.) CMP Urgent (16:42 11/02/2016 Christopher LYNCH) (16:53 Gio R.N.) PT with INR Urgent (16:42 11/02/2016 Christopher LYNCH) (16:53 Gio Restrepo.N.) PTT Urgent (16:42 11/02/2016 Christopher LYNCH) (16:53 Gio R.N.) Amylase Urgent (16:42 11/02/2016 Christopher LYNCH) (16:53 Gio R.N.) Lipase Urgent (16:42 11/02/2016 Christopher LYNCH) (16:53 Gio R.N.) Type & Screen Urgent (16:42 11/02/2016 Christopher LYNCH) (16:53 Gio R.N.) Chest 1V Urgent (16:42 11/02/2016 Christopher LYNCH) (Ack 17:04 AMcQuoid ER Tech1) (17:05 AMcQuoid ER Tech1) Oxygen (2 L/min) (NC) (16:43 11/02/2016 Christopher LYNCH) (17:06 AMcQuoid ER Tech1) CPK Urgent (17:19 11/02/2016 Christopher LYNCH) (17:28 AMcQuoid ER Tech1) Troponin-I Urgent (17:19 11/02/2016 Christopher LYNCH) (17:28 AMcQuoid ER TechIvone) EKG - ER Stat (17:19 11/02/2016 Christopher LYNCH) (17:33 RKaruga) MEDICATION ORDERS: IV FLUIDS: IV Saline Lock (16:43 11/02/2016 Christopher LYNCH) (16:53 Gio R.N.) IV NS : initial bolus 500 mL (1000 mL/hr), then 125 mL/hr for 4h (NOW); Urgent (17:53 11/02/2016 Christopher LYNCH) (18:09 Qian Cristobal) ORDER SHEET NOTES: [Electronically signed by Stanton Painter R.N. (21:06 11/02/2016)] [Electronically signed by Flex Lema MD (23:38 11/03/2016)] [Electronically locked/signed by Stanton Painter R.N. (:06 11/02/2016)]
--- NOTE | 2016-11-03 23:38 | ED DISCHARGE INSTRUCTIONS ---
Patient: GERMANIA MARTINEZ General Instructions [facility] VisitID: [id number] [address] [place] [address] 71y, F Registration Date/Time: 11/02/2016 Stable COPD. Chronic anemia. Oral anticoagulation therapy with intermodal customer service use and subtherapeutic PT. INSTRUCTIONS (Contact Dr. Bhandari's office to confirm that she plans to do a home visit tomorrow as discussed). Warnings: Further evaluation is necessary. GENERAL WARNINGS: Return or contact your physician immediately if your condition worsens or changes unexpectedly, if not improving as expected, or if other problems arise. Your Current Medications: CONTINUE TAKING THE FOLLOWING MEDICATIONS: Albuterol Sulfate Inhalation. Alendronate Sodium Oral. ALPRAZolam Oral. Benadryl Oral. Diltiazem HCl ER Coated Beads Oral. Flovent HFA Inhalation. Fluticasone Propionate HFA Inhalation. Furosemide Oral. Home Oxygen @ 4LPM/NC*. Ipratropium-Albuterol Inhalation. Megace Oral Oral. Multivitamins Oral. Oxycodone-Acetaminophen ER Oral. PriLOSEC Oral. ProAir HFA Inhalation. Ranitidine HCl Oral. Singulair Oral. Vitamin D Oral. Warfarin Sodium Oral. Understanding of the discharge instructions verbalized by patient. Follow-up with: Eveline Bhandari MD, [facility], , [facility] [place] [facility], [address] [place] [address] Follow up tomorrow. ADDITIONAL INFORMATION Anemia [Type Not Specified, Adult] Red blood cells carry oxygen to the tissues of the body. Anemia is a condition where the size or number of red blood cells in the body is reduced. Iron is needed to make red blood cells. The most common cause of anemia is iron deficiency. This may be due to: i) Blood loss (heavy menstrual periods or bleeding from the stomach or intestines); or, ii) Not eating enough iron-containing foods. Other causes of anemia include certain vitamin deficiencies, chronic kidney disease or certain other chronic illnesses. Anemia causes a feeling of being tired and run down. When anemia becomes severe, the skin becomes pale and there is shortness of breath with exertion. Headaches, dizziness, leg cramps with exertion, drowsiness and fatigue are other common symptoms. Home Care: If you are having symptoms of anemia listed above: -- Do not overexert yourself. -- Talk to your doctor before flying on an airplane or traveling to high altitudes. Follow Up with your doctor as advised by our staff. Additional blood testing may be required to determine the exact cause of your anemia. If testing was done on this visit, it may take several days to get all of the results. You may call this facility or follow up with your own doctor to get the results. Get Prompt Medical Attention if any of the following occur: -- Shortness of breath or chest pain -- Worsening of dizziness, fainting -- Vomiting blood or passing red or black-colored stool You have been given the following additional information: Anemia, Type Not Specified (Adult) (Electronically signed by Flex Lema MD 11/03/2016 23:38)
--- NOTE | 2016-11-03 23:38 | ED MAR SUMMARY ---
..... Medication Administration Record [facility] [address] [place] [address] Patient: GERMANIA MARTINEZ Visit ID: [id number] 71y, F Weight: 60.0 kg Height/Length: 68 in BMI: 20.1 ALLERGIES: Sulfa Antibiotics Start 18:09 11/02/2016 Bonnie Miles RRosalio, Stop 19:30 11/02/2016 Stanton Painter RAtulNAtul Medication Administered: IV NS (SALINE), Dose: IV Fluids over 30 minute(s), Rate: 500 mL/hr, Dispensed: 1000 mL bag, Site: #1 left. Medication Ordered: IV NS : initial bolus 500 mL (1000 mL/hr), then 125 mL/hr for 4h (NOW); Urgent.
--- NOTE | 2016-11-03 23:38 | ED MED RECONCILIATION SUMMARY ---
Patient: GERMANIA MARTINEZ Medication Reconciliation Report [facility] VisitID: [id number] [address] [place] [address] 71y, F Registration Date/Time: 11/02/2016 Weight: 60 kg Height/Length: 68 in. BMI: 20.1 ALLERGIES: Sulfa Antibiotics The patient's Home Medications are listed below: CONTINUE TAKING THE FOLLOWING MEDICATIONS: Albuterol Sulfate Inhalation Alendronate Sodium Oral ALPRAZolam Oral Benadryl Oral Diltiazem HCl ER Coated Beads Oral Flovent HFA Inhalation Fluticasone Propionate HFA Inhalation Furosemide Oral Home Oxygen @ 4LPM/NC Ipratropium-Albuterol Inhalation Megace Oral Oral Multivitamins Oral Oxycodone-Acetaminophen ER Oral PriLOSEC Oral ProAir HFA Inhalation Ranitidine HCl Oral Singulair Oral Vitamin D Oral Warfarin Sodium Oral The source(s) of the original Home Medication information: Not obtained. The following Medications were given to the patient in the Emergency Department: IV NS IV Fluids bolus 0, then 500 mL/hr, administered: 11/02/2016 6:09:00 PM The following Medications were prescribed to the patient: None.
--- NOTE | 2016-11-03 23:38 | ED MAR SUMMARY ---
..... Medication Administration Record [facility] [address] [place] [address] Patient: GERMANIA MARTINEZ Visit ID: [id number] 71y, F Weight: 60.0 kg Height/Length: 68 in BMI: 20.1 ALLERGIES: Sulfa Antibiotics Start 18:09 11/02/2016 Bonnie Miles RRosalio, Stop 19:30 11/02/2016 Stanton Painter RAtulNAtul Medication Administered: IV NS (SALINE), Dose: IV Fluids over 30 minute(s), Rate: 500 mL/hr, Dispensed: 1000 mL bag, Site: #1 left. Medication Ordered: IV NS : initial bolus 500 mL (1000 mL/hr), then 125 mL/hr for 4h (NOW); Urgent.
--- NOTE | 2016-11-03 23:38 | ED MED RECONCILIATION SUMMARY ---
Patient: GERMANIA MARTINEZ Medication Reconciliation Report [facility] VisitID: [id number] [address] [place] [address] 71y, F Registration Date/Time: 11/02/2016 Weight: 60 kg Height/Length: 68 in. BMI: 20.1 ALLERGIES: Sulfa Antibiotics The patient's Home Medications are listed below: CONTINUE TAKING THE FOLLOWING MEDICATIONS: Albuterol Sulfate Inhalation Alendronate Sodium Oral ALPRAZolam Oral Benadryl Oral Diltiazem HCl ER Coated Beads Oral Flovent HFA Inhalation Fluticasone Propionate HFA Inhalation Furosemide Oral Home Oxygen @ 4LPM/NC Ipratropium-Albuterol Inhalation Megace Oral Oral Multivitamins Oral Oxycodone-Acetaminophen ER Oral PriLOSEC Oral ProAir HFA Inhalation Ranitidine HCl Oral Singulair Oral Vitamin D Oral Warfarin Sodium Oral The source(s) of the original Home Medication information: Not obtained. The following Medications were given to the patient in the Emergency Department: IV NS IV Fluids bolus 0, then 500 mL/hr, administered: 11/02/2016 6:09:00 PM The following Medications were prescribed to the patient: None.
--- NOTE | 2016-11-03 23:38 | ED DISCHARGE INSTRUCTIONS ---
Patient: GERMANIA MARTINEZ General Instructions [facility] VisitID: [id number] [address] [place] [address] 71y, F Registration Date/Time: 11/02/2016 Stable COPD. Chronic anemia. 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 INSTRUCTIONS (Contact Dr. Bhandari's office to confirm that she plans to do a home visit tomorrow as discussed). Warnings: Further evaluation is necessary. GENERAL WARNINGS: Return or contact your physician immediately if your condition worsens or changes unexpectedly, if not improving as expected, or if other problems arise. Your Current Medications: CONTINUE TAKING THE FOLLOWING MEDICATIONS: Albuterol Sulfate Inhalation. Alendronate Sodium Oral. ALPRAZolam Oral. Benadryl Oral. Diltiazem HCl ER Coated Beads Oral. Flovent HFA Inhalation. Fluticasone Propionate HFA Inhalation. Furosemide Oral. Home Oxygen @ 4LPM/NC*. Ipratropium-Albuterol Inhalation. Megace Oral Oral. Multivitamins Oral. Oxycodone-Acetaminophen ER Oral. PriLOSEC Oral. ProAir HFA Inhalation. Ranitidine HCl Oral. Singulair Oral. Vitamin D Oral. Warfarin Sodium Oral. Understanding of the discharge instructions verbalized by patient. Follow-up with: Eveline Bhandari MD, [facility], , [facility], [address] [place] [address] Follow up tomorrow. ADDITIONAL INFORMATION Anemia [Type Not Specified, Adult] Red blood cells carry oxygen to the tissues of the body. Anemia is a condition where the size or number of red blood cells in the body is reduced. Iron is needed to make red blood cells. The most common cause of anemia is iron deficiency. This may be due to: i) Blood loss (heavy menstrual periods or bleeding from the stomach or intestines); or, ii) Not eating enough iron-containing foods. Other causes of anemia include certain vitamin deficiencies, chronic kidney disease or certain other chronic illnesses. Anemia causes a feeling of being tired and run down. When anemia becomes severe, the skin becomes pale and there is shortness of breath with exertion. Headaches, dizziness, leg cramps with exertion, drowsiness and fatigue are other common symptoms. Home Care: If you are having symptoms of anemia listed above: -- Do not overexert yourself. -- Talk to your doctor before flying on an airplane or traveling to high altitudes. Follow Up with your doctor as advised by our staff. Additional blood testing may be required to determine the exact cause of your anemia. If testing was done on this visit, it may take several days to get all of the results. You may call this facility or follow up with your own doctor to get the results. Get Prompt Medical Attention if any of the following occur: -- Shortness of breath or chest pain -- Worsening of dizziness, fainting -- Vomiting blood or passing red or black-colored stool You have been given the following additional information: Anemia, Type Not Specified (Adult) (Electronically signed by Flex Lema MD 11/03/2016 23:38)
== END 2016-11-02 19:35 | disposition home or self-care (01) ==
LOC: ED SRH 16:38
DX: D64.9 Anemia, unspecified (principal); R79.1 Abnormal coagulation profile; Z79.01 Long term (current) use of anticoagulants; J44.9 Chronic obstructive pulmonary disease, unspecified; I10 Essential (primary) hypertension; Z87.891 Personal history of nicotine dependence; Z79.899 Other long term (current) drug therapy; Z88.2 Allergy status to sulfonamides
CPT/HCPCS: 90001; 90100; 90155; 90616; 91004; 92235; 92530; 92610; 94001; 94060; 95059

== ENCOUNTER 2017-01-14 08:53 | Outpatient (CLI) | payer OTHER ==
--- NOTE | 2017-01-14 11:56 | DIAGNOSTIC IMAGING REPORT ---
PROCEDURE: CT THORAX WITH CONTRAST INDICATION: LUNG CANCER, COPD. Reassess. TECHNIQUE: 100 ml of Isovue 300 was injected intravenously and axial images were obtained of the chest with coronal and sagittal reformations. COMPARISON: CTA thorax 08/03/2016. FINDINGS: Moderate emphysema. Stable pleural parenchymal scarring and calcification along the right upper lobe posterolaterally with volume loss. Small peripheral left upper lobe and bibasilar scarring. No infiltrate or effusion. No adenopathy. Moderate atherosclerosis of the aorta. Coronary atherosclerosis. Heart size is normal. Visualized upper abdomen is unremarkable. Mild kyphosis and degenerative changes of the spine. No suspicious osseous lesions. IMPRESSION: 1. COPD 2. Stable right upper lobe partially calcified pleuroparenchymal scarring with volume loss.
== END 2017-01-14 23:00 ==
LOC: CT SRH 08:53
DX: J44.9 Chronic obstructive pulmonary disease, unspecified (principal)
CPT/HCPCS: 90074; 90100; 91282; 92668; 92680; 95059